=== PATIENT | female | born 1960 | race African-American/Black ===

== ENCOUNTER 2019-04-13 20:08 | Inpatient (IN) ==
[2019-04-13] MEDS ORDERED: NS 1,000 ML IV ONE (20:54)
[2019-04-13 21:01] LABS: BASO# 0.04 X1000 (0.0-0.2); BASO% 0.6 % (0.0-0.8); EOS# 0.03 X1000 (0.0-0.7); EOS% 0.4 % (0.0-10.0); HEMATOCRIT 42.5 % (37.0-47.0); HEMOGLOBIN 14.4 g/dL (12.0-16.0); LYMPH# 2.02 X1000 (1.2-3.4); LYMPH% 27.9 % (20.5-51.1); MCH 26.4 PG (27-31); MCHC 33.9 g/dL (33-37); MCV 77.8 FL (81-99); MPV 10.6 FL (7.4-10.4); NEUT# 3.85 X1000 (1.4-6.5); NEUT% 53.1 % (42.2-75.2); PLT 170 X1000 (130-400); RBC 5.46 XMIL (4.2-5.4); RDW 15.1 % (11.5-14.5); WBC 7.24 X1000 (4.8-10.8)
[2019-04-13 21:28] LABS: AGAP 11; ALB/GLOB RATIO 0.7; ALBUMIN 3.8 g/dL (3.5-5.0); ALKALINE PHOSPHATASE 119 U/L (32-104); BUN 18 mg/dL (8-22); CALCIUM 9.5 mg/dL (8.8-10.2); CHLORIDE 108 mmol/L (98-107); COSMO 292; CREATININE 0.9 mg/dL (0.5-0.9); ESTIMATED GFR > 60; GLUCOSE 86 mg/dL (70-104); GOT 32 U/L (10-30); GPT 16 U/L (10-36); POTASSIUM 4.3 mmol/L (3.5-5.1); SODIUM 146 mmol/L (136-145); TCO2 27 mmol/L (25-35); TOTAL PROTEIN 9.1 g/dL (6.3-8.3)
--- NOTE | 2019-04-13 21:42 | Diag Imaging Result Doc PS360 ---
EXAM: CHEST-2 VIEWS 04/13/2019 HISTORY: fever TECHNIQUE: AP and lateral chest COMMENT: There are aortic and mitral valve prostheses. There are sternotomy wires. There is cardiomegaly. Compared to the previous study of 06/15/2016 the opacity which was previously present in the right costophrenic angle is no longer present. Otherwise are has been no appreciable change. IMPRESSION: Cardiomegaly. Electronically signed by Frederick Arnold 04/13/2019 9:40 PM
[2019-04-13 21:58] LABS: URINE SOURCE CLEAN CATCH
[2019-04-13 22:36] LABS: BILIRUBIN URINE NEGATIVE (NEGATIVE); BLOOD URINE MODERATE (NEGATIVE); COLOR YELLOW; GLUCOSE URINE NEGATIVE (NEGATIVE); KETONE URINE NEGATIVE (NEGATIVE); LEUKOCYTES URINE SMALL (NEGATIVE); NITRITE URINE NEGATIVE (NEGATIVE); PH URINE 5.5; PROTEIN URINE 200 mg/dL (NEGATIVE); SP GRAVITY URINE 1.015; TURBIDITY URINE CLEAR (CLEAR); UROBILINOGEN URINE NORMAL (NORMAL)
[2019-04-13] MEDS ORDERED: ROCEPHIN 1 GM in NS 50 ML IV ONE (22:36)
[2019-04-13 22:37] LABS: UR EPITHELIAL CELLS <10 /HPF (<10); URINE BACTERIA 2+ /HPF; URINE RBC TNTC /HPF (<10); URINE WBC TNTC /HPF (<10)
[2019-04-13 22:47] LABS: UR AMPHETAMINES QUAL NONE DETECTED (NONE DETECT); UR BARBITUATES QUAL NONE DETECTED (NONE DETECT); UR BENZODIAZEPIN QUAL NONE DETECTED (NONE DETECT); UR OPIATES QUAL PRESUMPTIVE POSITIVE (NONE DETECT)
[2019-04-13 22:48] LABS: UR CANNABINOIDS QUAL NONE DETECTED (NONE DETECT); UR COCAINE QUAL NONE DETECTED (NONE DETECT); UR METHADONE QUAL NONE DETECTED (NONE DETECT); UR OXYCODONE QUAL NONE DETECTED (NONE DETECT); UR PCP QUAL NONE DETECTED (NONE DETECT)
--- NOTE | 2019-04-13 23:04 | PROVIDER DOCUMENTATION ---
This chart was entered by Khushi Stiles Scribe, acting as scribe for Abigail York MD. HPI-General Adult - General Chief Complaint: General Adult Stated Complaint: POSS SINUS INFECTION/FEVER Time Seen by Provider: 04/13/19 20:13 Source: patient Allergies/Adverse Reactions: Patient Allergies Allergy/AdvReac Type Severity Reaction Status Date / Time aspirin Allergy Intermediate anxiety Verified 06/15/16 12:30 Home Medications: Home Medication List Medication Instructions Recorded Confirmed Last Taken Type Fentanyl 25 Microgm/Hr Patch 1 each TD Q72H 07/19/13 04/14/19 04/12/19 09:00 History [Duragesic 25 Microgm/Hr Patch] Warfarin [Coumadin] 5 mg PO DIRECTED 06/15/14 04/14/19 04/10/19 21:00 History Atorvastatin Calcium [Lipitor] 10 mg PO DAILY 09/22/14 04/14/19 04/11/19 20:00 History Docusate Sodium [Colace] 100 mg PO BID 05/30/16 04/14/19 04/12/19 09:00 History Furosemide [Lasix] 1 tab PO DAILY PRN 05/30/16 04/14/19 04/10/19 08:00 History Gabapentin [Neurontin] 800 mg PO TID 05/30/16 04/14/19 04/12/19 08:00 History Hydrocodone/Acetaminophen [Lawrence 1 each PO Q6-8H PRN PRN 05/30/16 04/14/19 04/12/19 08:00 History 10-325 Tablet] Losartan [Cozaar] 50 mg PO BID 05/30/16 04/14/19 04/12/19 08:00 History Montelukast Sodium [Singulair] 10 mg PO QHS 05/30/16 04/14/19 04/11/19 20:00 History Pantoprazole [Protonix] 40 mg PO DAILY@0700 05/30/16 04/14/19 04/12/19 07:00 History Warfarin [Coumadin] 2.5 mg PO DIRECTED 05/30/16 04/14/19 04/11/19 21:00 History Baclofen 10 mg PO DAILY 04/14/19 04/14/19 Unknown History Duloxetine [Cymbalta] 30 mg PO DAILY 04/14/19 04/14/19 04/13/19 08:00 History Hydrochlorothiazide 25 mg PO DAILY 04/14/19 04/14/19 04/13/19 08:00 History Mirtazapine 15 mg PO DAILY 04/14/19 04/14/19 04/12/19 20:00 History Sotalol [Betapace] 80 mg PO BID 04/14/19 04/14/19 04/13/19 08:00 History - History of Present Illness -Gen Adult Nature of Presenting Problems: 58yof presents to ED cc fever, green discharge from nose for last week, nosebleed, pain in left ear from bad tooth in left upper, nausea and dysuria. Pt reports she is seen by Pain Management and takes Lawrence with last dosage being last night and she is now out of them. Pt denies cough, vomiting, chest pain. She sstates she took her temp last night and it was 106. She is a very vague historian. No family at bedside. Location of Pain/Injury: reports: generalized Quality of Pain: reports: aching Severity: reports: mild Onset/Duration: reports: 1 week ago Timing: reports: still present Context/Activities at Onset: reports: light activity Modifying Factors: improves with: nothing Associated Symptoms: reports: fever/chills, sinus congestion/drainage, nausea Similar Symptoms Previously?: No Recently seen or treated by another doctor?: No Review of Systems - Adult - REVIEW OF SYSTEMS - ADULT ROS:: limited per condition Constitutional: reports: see HPI, chills, fever. denies: fatique Eyes: reports: no symptoms reported Ears, Nose, Mouth & Throat: reports: see HPI, ear pain (left), epistaxis, sinus problem, mouth/dental pain (left) Cardiovascular: reports: no symptoms reported Respiratory: reports: see HPI. denies: cough, shortness of breath, wheezing Gastrointestinal: reports: see HPI, nausea. denies: diarrhea, vomiting Genitourinary: reports: see HPI, dysuria. denies: hematuria Musculoskeletal: reports: no symptoms reported Integumentary: reports: no symptoms reported Neurological: reports: no symptoms reported Psychiatric: reports: no symptoms reported Endocrine: reports: no symptoms reported Hematologic/Lymphatic: reports: no symptoms reported Allergic/Immunologic: reports: no symptoms reported All Other Systems: Reviewed and Negative Past History - Adult - PAST MEDICAL HISTORY-ADULT Review of Records: reports: Old Records Reviewed, Nursing Assessment Review, Medications Reviewed, Social history reviewed & non-contributory. Major Childhood Illnesses: reports: denies history Cardiovascular: reports: CHF, HTN Respiratory: reports: asthma Gastrointestinal: reports: GERD Obstetrical/Gynecological: reports: denies history Genitourinary: reports: denies history Musculoskeletal: reports: denies history Neurological: reports: CVA Endocrine/Immune: reports: denies history Other Conditions: reports: denies history - PRIOR SURGERIES/PROCEDURES Surgical/Procedure History: reports: , orthopedic (extremity) (left AKA), other (mechanical heart valve) - PRIOR HOSPITALIZATIONS Prior Hospitalizations: reports: for similar symptoms - IMMUNIZATION STATUS Childhood Immunizations: See Nurse Assessment Flu Vaccine: See Nurse Assessment - FAMILY HISTORY Family History: reviewed, not pertinent - SOCIAL HISTORY Smoking: denies Physical Exam-General - PHYSICAL EXAM-ADULT Initial Vital Signs Reviewed: Yes - CONSTITUTIONAL General Appearance: appears well, alert, no apparent distress. negative: anxious, combative - EYES Eyes: PERRL/EOMI. negative: meningismus, pale conjunctivae, photophobia - HEAD, EARS, NOSE, MOUTH & THROAT HENMT: normocephalic/atraumatic, dental decay, maxillary tenderness, other (dry mucous membranes). negative: moist mucous membranes (dry), angioedema, hearing deficit - NECK Neck: non-tender, full range of motion, supple, normal inspection. negative: C- spine tenderness - RESPIRATORY Respiratory: chest non-tender, lungs clear, normal breath sounds, no respiratory distress, no accessory muscle use - CARDIOVASCULAR Cardiovascular: normal peripheral pulses, regular rate, rhythm, no edema, other (clicking sound possibly from a mechanical valve). negative: bradycardia, tachycardia - GASTROINTESTINAL (ABDOMEN) Abdominal Exam: normal bowel sounds, non tender, soft. negative: distended - MUSCULOSKELETAL Extremity: pelvis stable, other (Left AKA, right BKA). negative: swelling - SKIN Integumentary: normal color, normal turgor, warm/dry. negative: cyanosis, diaphoresis, ecchymosis, erythema, jaundice, pallor, rash - NEUROLOGIC Neurologic: lacquer sizer II-XII nml as tested, grossly normal, no motor/sensory deficits. negative: facial droop, focal weakness, motor weakness, sensory deficit - PSYCHIATRIC Psych/Mental Status: normal mood/affect, normal thought content, normal thought process, oriented x 3. negative: disoriented x 3, anxious, disheveled, depressed affect Progress - PLAN OF CARE/RESULTS Progress/Plan/Lab Results: Vital Signs - 8 hr 04/13/19 20:12 04/13/19 20:23 Temperature 100.1 F H Pulse Rate 88 Respiratory Rate 20 Blood Pressure 214/114 189/114 O2 Sat by Pulse Oximetry 96 04/13/19 20:14 Group A Strep Rapid Antigen - Final Throat Orders Category Date Time Status CHEST-2 VIEWS [RAD] Stat Exams 04/13/19 20:21 Ordered BLOOD CULTURE [BLDCUL] Stat Lab 04/13/19 20:24 Uncollected CBC WITH ELECTRONIC DIFF [HEME] Stat Lab 04/13/19 20:24 Uncollected COMPREHENSIVE METABOLIC PANEL [CHEM] Stat Lab 04/13/19 20:24 Uncollected DIRECT STREP Stat Lab 04/13/19 20:14 Received INFLUENZA SCREEN A/B Stat Lab 04/13/19 20:14 Received LACTATE, PLASMA [CHEM] Stat Lab 04/13/19 20:[address] W/POSS RFLX CULT [URINALYSIS] Stat Lab 04/13/19 20:24 Uncollected URINE CULTURE [RM] Stat Lab 04/13/19 20:24 Uncollected Patient with temp to 100.1 on arrival. CXR not showing anything acute. UA +, WBC normal. LA normal. Spoke to Dr Garcia about admission given that I feel that patient will not care for ehrself at home and is at risk for returning in sepsis. He agreed and accepted patient for admission. Further orders to be placed per his team. Patient sleeping in bed on reeval. Result Diagrams: 04/13/19 20:48 04/13/19 20:48 - XRAY 1 XRAY Study: Chest Impression: See EMR Report (EXAM: CHEST-2 VIEWS 04/13/2019 HISTORY: fever TECHNIQUE: AP and lateral chest COMMENT: There are aortic and mitral valve prostheses. There are sternotomy wires. There is cardiomegaly. Compared to the previous study of 06/15/2016 the opacity which was previously present in the right costophrenic angle is no longer present. Otherwise are has been no appreciable change. IMPRESSION: Cardiomegaly. Electronically signed by Frederick Arnold 04/13/2019 9:40 PM) - CONSULTS/PCP/HOSPITALIST Notification #1 *Consult/PCP/Hospitalist*: Dr. Garcia Time Discussed: 22:55 Consult Disposition: Admit (agree to admit pt) Departure - Departure Date of Disposition Decision: 04/13/19 Time of Disposition Decision: 23:00 DIAGNOSIS: UTI (urinary tract infection), Fever Disposition: ADMITTED INPATIENT 09 Certified Medical Emergency: Emergent Condition: Stable - Critical Care Note This patient required my direct & personal management of CC.: No Attestation - Physician/ ANDREZ Attestation Patient care was provided by Advanced Practice Provider:: No The physician spent face to face time with patient:: Yes Advanced Practice Provider documentation review:: Supervising physician onsite and consulted in the evaluation and care of this patient. The physician did have a face to face encounter with the patient. This chart was documented by the indicated scribe, (Khushi Stiles Scribadam) and accurately reflects the services I performed and decisions made by me, Abigail York MD, as attested by the provider's signature.
[2019-04-13 23:41] LABS: INR 2.53; PROTIME 27.9 Seconds (11.0-16.0)
[2019-04-13 23:42] LABS: PTT 42.7 Seconds (22.3-41.8)
[2019-04-14] MEDS ORDERED: NEURONTIN PO ONE (02:34)
[2019-04-14] MEDS ORDERED: COUMADIN PO ONE (02:34)
[2019-04-14] MEDS ORDERED: ZOFRAN IV PRN (02:37)
[2019-04-14] MEDS ORDERED: CALMOSEPTINE OINTMENT TOP PRN (02:39)
[2019-04-14] MEDS ORDERED: NICODERM PATCH TD PRN (02:40)
[2019-04-14] MEDS: NORCO-10 PO PRN ×2 (02:53→09:28)
[2019-04-14] MEDS ORDERED: PROTONIX PO SCH (07:00)
[2019-04-14] MEDS ORDERED: HYDROCHLOROTHIAZIDE PO PRN (07:29)
--- NOTE | 2019-04-14 07:50 | HISTORY AND PHYSICAL ---
PRIMARY CARE PROVIDER: Dr. Karyn Gonsalez. DATE AND TIME: 04/14/2019 at 0015. CHIEF COMPLAINT: Dysuria, generalized aches, fever, and sinus congestion. HISTORY OF PRESENT ILLNESS: Ms Bearden is a 58-year-old female with a past medical history most notable for hypertensive heart disease, aortic and mitral valve replacements, hypertension, and hyperlipidemia. The patient states that she has recently been treated for a urinary tract infection with an antibiotic, though at this time, we are unsure what antibiotic she has recently been receiving. She is reporting some dysuria as well as low back pain. She has reported some fever and generalized aches. She also reports that she has had sinus congestion and drainage, though the patient does report this is something that she has frequent problems with. She is reporting a headache, though this is likely secondary to her sinus symptoms. She denies any chest pain, shortness of breath, or cough. She denies any abdominal pain, nausea, vomiting, or diarrhea. Denies any hematochezia or melena. 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 Upon evaluation in the ER, patient's initial vital signs were temperature 100.1 degrees, heart rate 88, respirations 20, blood pressure is 214/114, oxygen saturation is 96% on room air. She was noted to have moderate amount of blood, small leukocytes, ose-txeehmwe-jf-count white blood cells, and 2+ bacteria in her urine. Chest x-ray showed cardiomegaly, though there is no signs of infectious process. At this time, the patient will be admitted for treatment and evaluation of her urinary tract infection. REVIEW OF SYSTEMS: A 14-point review of systems was conducted with the patient and all were negative, except pertinent positives mentioned above in HPI. PAST MEDICAL HISTORY: 1. Hypertensive heart disease. 2. Mechanical aortic valve replacement and mechanical mitral valve replacement at [facility] for mitral stenosis and aortic stenosis. She also had a tricuspid valve repair as well. 3. Atrial fibrillation. 4. Hypertension. 5. Hyperlipidemia. 6. Tobacco abuse. 7. Peripheral vascular disease, status post femorofemoral bypass in March 2014. 8. History of left lower extremity gangrene, status post bilateral amputation rlzff-lne-xhgy on the left and nehto-bby-jvrw on the right. 9. History of a left hemispheric stroke in 2009 with no reported residual deficits. PAST SURGICAL HISTORY: 1. Status post femorofemoral bypass in March 2017. 2. Status post bilateral amputations with a left zsipk-jrt-vybi amputation and a right below-the- knee amputation. 3. Aortic valve replacement, mitral valve replacement, and tricuspid valve repair in May 2010. 4. section. SOCIAL HISTORY: The patient smokes 1 pack of cigarettes per day. She denies any alcohol or illicit drug use. FAMILY HISTORY: Positive for her Mother having history of hypertension. Her Father secondary to throat cancer. Her sister has a history of heart disease and myocardial infarction. ALLERGIES: Patient has allergies to aspirin, stating it causes her to have anxiety. HOME MEDICATIONS: 1. Atorvastatin 10 mg p.o. 2. Baclofen 10 mg p.o. at bedtime. 3. Colace 100 mg p.o. b.i.d. 4. Cymbalta 30 mg p.o. daily. 5. Lasix 40 mg tablet p.o. daily p.r.n. 6. Neurontin 800 mg p.o. t.i.d. 7. Hydrochlorothiazide 25 mg p.o. daily p.r.n. 8. Marshall 10 mg p.o. q.6 to 8 hours p.r.n. pain. 9. Cozaar 50 mg p.o. b.i.d. 10. Mirtazapine 15 mg p.o. daily. 11. Singulair 10 mg p.o. at bedtime. 12. Protonix 40 mg p.o. daily. 13. Betapace 80 mg p.o. b.i.d. 14. Coumadin 2.5 mg p.o. on Monday, Monday, , Monday, Monday. 15. Coumadin 5 mg p.o. on Monday's and Monday's only. DIAGNOSTIC DATA: White blood cell count 7240, hemoglobin 14.4, hematocrit 42.5, platelet count 170,000. PT 27.9, INR is 2.53, PTT is 42.7. Sodium 146, potassium 4.3, chloride 108, serum bicarb 27, BUN 18, creatinine 0.9. GFR greater than 60, glucose 86, calcium 9.5. Liver function tests within normal limits, except for AST is slightly elevated at 32, and alkaline phosphatase is slightly elevated at 119. ProBNP is 1965. Plasma lactate is 0.9. Urine drug screen was positive for opiates. Urinalysis positive for protein, blood, leukocytes., too numerous to count white blood cells, and 2+ bacteria. Chest x-ray showed cardiomegaly, this is per Radiology. PHYSICAL EXAMINATION: VITAL SIGNS: Temperature 98.8, heart rate 87, respirations 20, blood pressure is 188/119, oxygen saturation is 99% on room air. GENERAL: Ms Bearden is a pleasant 58-year-old female, she was resting in the stretcher. She was in no acute distress. She was awake, alert, and able to answer questions appropriately. HEENT: Head is atraumatic, normocephalic. Pupils are equal, round, reactive to light, were 3 mm bilaterally and brisk. Oral mucosa was moist. Oropharynx was clear, except the patient does have some oral candidiasis noted to her tongue and right buccal mucosa. NECK: Supple. Trachea midline. CARDIOVASCULAR: Patient has S1, S2 present. She had regular rate and rhythm. PULMONARY: Patient has symmetrical chest expansion bilaterally. Lung sounds are clear to auscultation in bilateral full torres. ABDOMEN: Soft, nondistended. She reports some slight tenderness in her right lower quadrant, though no rebound tenderness noted. Bowel sounds are present in all 4 quadrants, were normoactive. EXTREMITIES: No cyanosis or edema noted. Radial pulses were 2+ bilaterally. The patient does have a left bknph-imk-gogd and right lmfrv-bor-thne amputation noted. INTEGUMENTARY: The patient's skin color is normal for her race, is dry and intact. NEUROLOGICAL: Patient is alert and oriented to person, place, time, and situation. She is able to move all extremities. There are no focal neurological deficits noted. ASSESSMENT AND PLAN: 1. Urinary tract infection. For this, we have placed the patient on antibiotics with Rocephin. We have ordered a urine culture as well. We are awaiting those results, we will continue to follow closely. 2. Fever. This is likely secondary to her urinary tract infection. At this time, there is no other known source of infection. The patient has reported some sinus congestion. We will continue to follow. We will continue treatment as above for her urinary tract infection. 3. Oral candidiasis. We will place the patient on nystatin suspension. 4. History of mechanical aortic valve replacement and mechanical mitral valve replacement. We will continue the patient's Coumadin as prescribed. Her INR is 2.5 at this time, which is within therapeutic range. We will repeat an INR in the morning and continue to follow closely. 5. Hypertension. The patient states that she has missed a dose or 2 of her blood pressure medicines yesterday. She is reporting some pain at this time. We will treat her pain. If her blood pressure continues to be elevated, we will treat this as well. We have continued her regularly prescribed antihypertensive medications. 6. Hyperlipidemia. We will continue her atorvastatin. 7. Deep venous thrombosis prophylaxis, will be provided with her regularly prescribed Coumadin. The patient has been placed on the medical floor with telemetry. She will have vital signs q.8 hours. We will do strict intake and output, incentive spirometry. She will be on a heart healthy diet. We will repeat a CBC, BMP, and INR in the morning. Further orders and recommendations pending hospital course, diagnostic studies, and physician evaluation. Dictated by MARIAN Epps for Lazaro Garcia MD I have performed a face to face diagnostic evaluation. Labs/ Imaging - reviewed. Exam- Chest- clear, CV- regular. A/P- UTI/ Fever- Admit, check blood and urine culture, IV abx Dr. Jose Estevez#: [id number] cc: Lazaro Garcia MD [facility]
[2019-04-14 08:09] LABS: BASO# 0.02 X1000 (0.0-0.2); BASO% 0.3 % (0.0-0.8); EOS# 0.06 X1000 (0.0-0.7); LYMPH# 1.94 X1000 (1.2-3.4); MCH 26.5 PG (27-31); MCHC 33.3 g/dL (33-37); MCV 79.6 FL (81-99); MONO# 1.63 X1000 (0.11-0.59); NEUT# 2.61 X1000 (1.4-6.5); NEUT% 41.7 % (42.2-75.2); PLT 148 X1000 (130-400); RDW 15.3 % (11.5-14.5)
[2019-04-14 08:10] LABS: INR 2.56; PROTIME 28.2 Seconds (11.0-16.0)
[2019-04-14 08:17] LABS: AGAP 8; BUN 16 mg/dL (8-22); CALCIUM 8.8 mg/dL (8.8-10.2); CHLORIDE 107 mmol/L (98-107); COSMO 283; CREATININE 0.8 mg/dL (0.5-0.9); ESTIMATED GFR > 60; GLUCOSE 100 mg/dL (70-104); POTASSIUM 3.9 mmol/L (3.5-5.1); SODIUM 141 mmol/L (136-145); TCO2 26 mmol/L (25-35)
[2019-04-14 08:21] VITALS: BP 159/91
[2019-04-14] MEDS ORDERED: LIPITOR PO SCH (09:00)
[2019-04-14] MEDS ORDERED: CYMBALTA PO SCH (09:00)
[2019-04-14] MEDS ORDERED: BETAPACE PO SCH (09:00)
[2019-04-14] MEDS ORDERED: NORVASC PO SCH (09:00)
[2019-04-14] MEDS ORDERED: COZAAR PO SCH (09:00)
[2019-04-14] MEDS ORDERED: REMERON PO SCH (09:00)
[2019-04-14] MEDS ORDERED: COLACE PO SCH (09:00)
[2019-04-14] MEDS ORDERED: MYCOSTATIN SUSP PO SCH (09:00)
[2019-04-14 09:32] LABS: EOS 1 % (1-10); LYMPHS 34 % (21-51); MONO 16 % (1-9); SEGS 49 % (42-75)
[2019-04-14 09:33] LABS: HYPOCHROM 2+; LARGE PLATELETS 1+; POLYCHROM 1+
[2019-04-14 09:34] LABS: WBC 6.26 X1000 (4.8-10.8)
[2019-04-14] MEDS ORDERED: NEURONTIN PO SCH (15:00)
--- NOTE | 2019-04-14 15:42 | DISCHARGE SUMMARY ---
ADMISSION DATE: 04/13/2019 DISCHARGE DATE: 04/14/2019 PERTINENT STUDIES: INR 2.53. WBC 8.26. Urinalysis with moderate blood, small leukocytes, too numerous to count white blood cells, no epithelial cells, 2+ bacteria. Urine drug screen positive for opiates only. DISCHARGE DIAGNOSES: 1. Urinary tract infection. 2. Chronic obstructive pulmonary disease. 3. Peripheral vascular disease. 4. Mechanical aortic and mitral valves. 5. Chronic anticoagulation with Coumadin. 6. Hypertension. 7. Hyperlipidemia. HOSPITAL COURSE: The patient presented initially complaining of dysuria and low back pain and headache. She was found to have UTI. She had 1 mildly elevated temperature to 100.1, but never had any jackelyn fevers. Urinalysis was suggestive of urinary tract infection. Urine culture growing gram-negative rods. This patient was observed overnight. Her symptoms ere improving. She was transitioned to oral Omnicef on discharged to follow up with her PCP. DISCHARGE VITAL SIGNS: Temperature 98.2 degrees, pulse, respirations 17, blood pressure 159/90, O2 saturation 98% on room air. DISCHARGE DIET: Regular. DISCHARGE MEDICATIONS: Singulair 10 mg p.o. at bedtime. Baclofen 10 mg p.o. at bedtime as needed. Sotalol 80 mg p.o. b.i.d. Colace 100 mg p.o. b.i.d. Coumadin as previously prescribed. Cozaar 50 mg p.o. b.i.d. Cymbalta 30 mg p.o. daily. Hydrochlorothiazide 25 mg p.o. daily. Lipitor 10 mg p.o. daily. Mirtazapine 50 mg p.o. daily. Gabapentin 800 mg p.o. t.i.d. [place] as previously prescribed. Protonix 40 mg p.o. daily. Omnicef 300 mg p.o. b.i.d. for 7 days. FOLLOW-UP AND PLAN: Patient appears to be UTI. Discharging home on oral Omnicef. Patient to follow up with PCP. COORDINATION TIME: Greater than 30 minutes were spent to arrange the discharge and counselling patient.
[2019-04-14] MEDS ORDERED: SINGULAIR PO SCH (21:00)
[2019-04-14] MEDS ORDERED: LIORESAL PO PRN (21:00)
[2019-04-14] MEDS ORDERED: COUMADIN PO SCH (21:00)
[2019-04-14] MEDS ORDERED: ROCEPHIN 1 GM in NS 50 ML IV SCH (23:00)
[2019-04-15] MEDS ORDERED: COUMADIN PO SCH (21:00)
== END 2019-04-14 12:22 | disposition home health service (06) | DRG 690 ==
LOC: ED 20:08 → 1N 23:57 → SUATTDRO 23:57
PROVIDERS: ATTEND Internal Medicine